=== PATIENT | male | born 1945 | race Two or more races ===

== ENCOUNTER 2022-11-07 18:33 | Emergency (ER) | payer OTHER ==
[~2022-11-07] VITALS: Ht 167.6 cm; Wt 81.6 kg
[~2022-11-07 18:33] MED LIST: PRILOSEC10 MG PO
[2022-11-07] MEDS ORDERED: METFORMIN HCL500 M4 PO (19:09)
[2022-11-07] MEDS ORDERED: LISINOPRIL5 MG PO (19:09)
[2022-11-07] MEDS ORDERED: SIMVASTATIN20 MG PO (19:09)
== END 2022-11-07 22:31 | disposition home or self-care (01) ==
LOC: ER 18:33
DX: G45.9 Transient cerebral ischemic attack, unspecified (principal)

== ENCOUNTER 2023-02-14 09:22 | Emergency (ER) | payer OTHER ==
[~2023-02-14] VITALS: Ht 165.1 cm; Wt 81.6 kg
[~2023-02-14 09:22] MED LIST changes: +LISINOPRIL5 MG PO; +METFORMIN HCL500 M4 PO; +SIMVASTATIN20 MG PO
[2023-02-14 13:51] LABS: HEMATOCRIT 42.5 % (39.0-48.0); HEMOGLOBIN 14.1 g/dL (13-16.00); MEAN CELL VOLUME 97.7 fL (80.0-100.00); MEAN CORPUSCULAR HEMOGLOBIN 32.4 pg (27.00-32.0); MEAN CORPUSCULAR HGB CONC 33.2 g/dl (32.0-36.0); PLATELET COUNT 218 K/uL (150-450); RED BLOOD COUNT 4.35 M/uL (4.00-6.00); RED CELL DISTRIBUTION WIDTH 13.6 % (11.5-14.5)
== END 2023-02-14 16:05 ==
LOC: ER 09:22
PROVIDERS: General Practice
DX: B34.9 Viral infection, unspecified (principal); E11.9 Type 2 diabetes mellitus without complications; Z79.84 Long term (current) use of oral hypoglycemic drugs; Z20.822 Contact with and (suspected) exposure to COVID-19; K21.9 Gastro-esophageal reflux disease without esophagitis; E78.00 Pure hypercholesterolemia, unspecified; I10 Essential (primary) hypertension

== ENCOUNTER 2023-04-09 09:36 | Emergency (ER) | payer OTHER ==
[~2023-04-09] VITALS: Ht 165.1 cm; Wt 80.7 kg
== END 2023-04-09 13:44 | disposition home or self-care (01) ==
LOC: ER 09:37
DX: R42 Dizziness and giddiness (principal); H66.90 Otitis media, unspecified, unspecified ear; E11.9 Type 2 diabetes mellitus without complications; I10 Essential (primary) hypertension

== ENCOUNTER → 2024-08-15 | Emergency (ER) | payer OTHER ==
[~2024-08-15] MED LIST changes: +CEFTRIAXONE SODIUM 1,000 MG VIAL ONE
== END | disposition home or self-care (01) ==
LOC: ER 12:24
DX: L02.511 Cutaneous abscess of right hand (principal); L30.8 Other specified dermatitis; E11.9 Type 2 diabetes mellitus without complications

== ENCOUNTER 2025-01-09 10:53 | Emergency (ER) | payer OTHER ==
[~2025-01-09] VITALS: Ht 167.6 cm; Wt 78.5 kg
[~2025-01-09 10:53] MED LIST changes: -CEFTRIAXONE SODIUM 1,000 MG VIAL ONE
[2025-01-09] MEDS ORDERED: TRAMADOL HCL 50 MG TABLET PO ONE (12:30)
[2025-01-09] MEDS ORDERED: ORPHENADRINE CITRATE 30 MG/ML AMPUL IM ONE (12:30)
[2025-01-09] MEDS ORDERED: DEXAMETHASONE SODIUM PHOSPHATE 4 MG/ML VIAL IM ONE (12:30)
[2025-01-09] MEDS ORDERED: ORPHENADRINE CITRATE 30 MG/ML AMPUL ONE (12:42)
[2025-01-09] MEDS ORDERED: DEXAMETHASONE SODIUM PHOSPHATE 4 MG/ML VIAL ONE (12:42)
== END 2025-01-09 13:41 | disposition home or self-care (01) ==
LOC: ER 10:54
DX: M54.30 Sciatica, unspecified side (principal); M54.50 Low back pain, unspecified; I10 Essential (primary) hypertension
CPT/HCPCS: 72100; 96372; 99283; J1100; J2360